=== PATIENT | female | born 1965 | race Caucasian/White ===

== ENCOUNTER 2016-10-08 08:38 | Inpatient (IN) | payer OTHER ==
[~2016-10-08] VITALS: Ht 170.2 cm; Wt 85.7 kg
[~2016-10-08 08:38] MED LIST: AMLODIPINE BESYL5 MG PO; AZATHIOPRINE50 MG PO; CIPRO500 MG PO; CLEOCIN300 MG PO; CLONAZEPAM0.5 MG PO; ENDOCET 10-3251 EACH PO; FLAGYL500 MG PO; GAMMAGARD LIQUI25 ML IV; HYDROCODON-ACE1 EAC7 PO; HYDROXYCHLOROQ200 MG PO; KLONOPIN0.5 M1 PO; LAMICTAL100 MG PO; LAMICTAL200 MG PO; LAMOTRIGINE200 MG; LAMOTRIGINE200 MG PO; LEVAQUIN500 MG PO; MEDROL DOSEPAK4 MG PO; MELATONIN5 M1 PO; METRONIDAZOLE500 MG PO; MOTRIN IB200 MG PO; MOTRIN400 MG PO; NORCO 5/3251 TABLET PO; OMEPRAZOLE40 M1 PO; PERCOCET 5/31 TABLET PO; PERCOCET 7.51 TABLET PO; PREDNISONE10 MG PO; PROTONIX40 MG PO; PROZAC20 MG PO; PROZAC40 MG PO; RISPERIDONE1 MG
[2016-10-08 08:58] VITALS: BP 122/87
[2016-10-08 09:25] LABS: HEMATOCRIT 40.9 % (36.0-46.0); MCH 32.7 PG (29.0-34.0); MCHC 34.2 G/DL (30.0-36.0); MCV 95.6 FL (83-99); MEAN PLAT.VOLUME 10.6 uM^3 (9.5-12.4); PLATELET COUNT 331 K/uL (156-360); RBC DIS.WIDTH-CV 14.8 % (11.8-14.6); RBC DIS.WIDTH-SD 47.6 % (39-53); RED BLOOD COUNT 4.28 M/uL (3.80-5.20); WHITE BLOOD COUNT 8.5 K/uL (4.1-10.2)
[2016-10-08 10:17] LABS: METH RESISTANT S AUREUS PCR NEGATIVE (NEGATIVE); PROBE CHECK PASS; SPECIMEN PROCESSING CONTROL PASS
[2016-10-08 19:18] VITALS: BP 117/78
[2016-10-08 23:16] VITALS: BP 112/63
[2016-10-09 02:45] VITALS: BP 112/76
[2016-10-09 07:34] LABS: HEMATOCRIT 31.3 % (36.0-46.0); MCHC 33.5 G/DL (30.0-36.0); MCV 98.4 FL (83-99); MEAN PLAT.VOLUME 10.6 uM^3 (9.5-12.4); PLATELET COUNT 246 K/uL (156-360); RBC DIS.WIDTH-CV 14.9 % (11.8-14.6); RED BLOOD COUNT 3.18 M/uL (3.80-5.20); WHITE BLOOD COUNT 9.3 K/uL (4.1-10.2)
[2016-10-09 07:40] LABS: ANION GAP 7 MEQ/L (2-14); CHLORIDE 101 MEQ/L (99-109); GFR ESTIMATE (CALCULATED) > 59 mL/min/; GLUCOSE 107 mg/dL (70-99); MAGNESIUM 1.6 mg/dl (1.3-2.7); POTASSIUM 4.2 MEQ/L (3.7-5.4); SAMPLE HEMOLYSIS CHECK 0; SAMPLE ICTERIC CHECK 0; SAMPLE LIPEMIA CHECK 0; SODIUM 135 MEQ/L (136-147); UREA NITROGEN (BUN) 12 mg/dL (9-23)
[2016-10-09 07:50] VITALS: BP 108/67
[2016-10-09 11:33] VITALS: BP 106/68
[2016-10-09 16:17] VITALS: BP 110/69
[2016-10-09 19:29] VITALS: BP 106/63
[2016-10-09 23:14] VITALS: BP 105/65
[2016-10-10 02:33] VITALS: BP 111/72
[2016-10-10 06:31] LABS: HEMATOCRIT 30.2 % (36.0-46.0); MCH 32.4 PG (29.0-34.0); MCHC 32.8 G/DL (30.0-36.0); MCV 98.7 FL (83-99); MEAN PLAT.VOLUME 10.2 uM^3 (9.5-12.4); PLATELET COUNT 245 K/uL (156-360); RBC DIS.WIDTH-CV 14.8 % (11.8-14.6); RBC DIS.WIDTH-SD 52.8 % (39-53); RED BLOOD COUNT 3.06 M/uL (3.80-5.20)
[2016-10-10 06:57] LABS: ANION GAP 6 MEQ/L (2-14); CHLORIDE 97 MEQ/L (99-109); GFR ESTIMATE (CALCULATED) > 59 mL/min/; GLUCOSE 90 mg/dL (70-99); MAGNESIUM 1.7 mg/dl (1.3-2.7); SAMPLE HEMOLYSIS CHECK 0; SAMPLE ICTERIC CHECK 0; SAMPLE LIPEMIA CHECK 0; SODIUM 135 MEQ/L (136-147); UREA NITROGEN (BUN) 4 mg/dL (9-23)
[2016-10-10 08:18] VITALS: BP 102/62
[2016-10-10 11:31] VITALS: BP 120/67
[2016-10-10 16:36] VITALS: BP 107/73
[2016-10-10 23:04] VITALS: BP 107/70
[2016-10-11 03:10] VITALS: BP 97/59
[2016-10-11 08:15] VITALS: BP 123/74
[2016-10-11 09:42] LABS: HEMATOCRIT 31.9 % (36.0-46.0); MCH 32.9 PG (29.0-34.0); MCHC 33.2 G/DL (30.0-36.0); MCV 99.1 FL (83-99); MEAN PLAT.VOLUME 10.5 uM^3 (9.5-12.4); PLATELET COUNT 282 K/uL (156-360); RBC DIS.WIDTH-CV 14.6 % (11.8-14.6); RBC DIS.WIDTH-SD 53.1 % (39-53); RED BLOOD COUNT 3.22 M/uL (3.80-5.20); WHITE BLOOD COUNT 9.3 K/uL (4.1-10.2)
[2016-10-11 10:05] LABS: ANION GAP 8 MEQ/L (2-14); CHLORIDE 99 MEQ/L (99-109); GFR ESTIMATE (CALCULATED) > 59 mL/min/; GLUCOSE 82 mg/dL (70-99); MAGNESIUM 1.9 mg/dl (1.3-2.7); POTASSIUM 3.9 MEQ/L (3.7-5.4); SAMPLE HEMOLYSIS CHECK 0; SAMPLE ICTERIC CHECK 0; SAMPLE LIPEMIA CHECK 0; SODIUM 136 MEQ/L (136-147); UREA NITROGEN (BUN) 3 mg/dL (9-23)
[2016-10-11 11:20] VITALS: BP 102/65
[2016-10-11 15:56] VITALS: BP 108/65
[2016-10-11 19:44] VITALS: BP 118/64; BP 95/58
[2016-10-11 23:28] VITALS: BP 105/61
[2016-10-12 03:52] VITALS: BP 107/69
[2016-10-12 06:56] LABS: ANION GAP 6 MEQ/L (2-14); CHLORIDE 101 MEQ/L (99-109); GFR ESTIMATE (CALCULATED) > 59 mL/min/; GLUCOSE 86 mg/dL (70-99); SAMPLE HEMOLYSIS CHECK 0; SAMPLE ICTERIC CHECK 0; SAMPLE LIPEMIA CHECK 0; SODIUM 137 MEQ/L (136-147); UREA NITROGEN (BUN) 3 mg/dL (9-23)
[2016-10-12 07:00] LABS: HEMATOCRIT 28.6 % (36.0-46.0); MCH 32.1 PG (29.0-34.0); MCHC 32.5 G/DL (30.0-36.0); MCV 98.6 FL (83-99); MEAN PLAT.VOLUME 10.2 uM^3 (9.5-12.4); PLATELET COUNT 251 K/uL (156-360); RBC DIS.WIDTH-CV 14.4 % (11.8-14.6); RBC DIS.WIDTH-SD 51.8 % (39-53)
[2016-10-12 07:04] LABS: WHITE BLOOD COUNT 5.4 K/uL (4.1-10.2)
[2016-10-12 07:45] VITALS: BP 98/61
[2016-10-12 15:45] VITALS: BP 105/58
[2016-10-12 19:52] VITALS: BP 104/62
[2016-10-12 22:33] VITALS: BP 104/65
[2016-10-13 07:46] LABS: HEMATOCRIT 30.6 % (36.0-46.0); MCH 31.5 PG (29.0-34.0); MCHC 31.7 G/DL (30.0-36.0); MCV 99.4 FL (83-99); MEAN PLAT.VOLUME 9.8 uM^3 (9.5-12.4); PLATELET COUNT 292 K/uL (156-360); RBC DIS.WIDTH-CV 14.4 % (11.8-14.6); RBC DIS.WIDTH-SD 51.4 % (39-53); RED BLOOD COUNT 3.08 M/uL (3.80-5.20)
[2016-10-13 08:13] VITALS: BP 107/69
[2016-10-13 08:16] LABS: ANION GAP 7 MEQ/L (2-14); CHLORIDE 101 MEQ/L (99-109); GFR ESTIMATE (CALCULATED) > 59 mL/min/; GLUCOSE 82 mg/dL (70-99); POTASSIUM 4.2 MEQ/L (3.7-5.4); SAMPLE HEMOLYSIS CHECK 0; SAMPLE ICTERIC CHECK 0; SAMPLE LIPEMIA CHECK 0; SODIUM 139 MEQ/L (136-147); UREA NITROGEN (BUN) 3 mg/dL (9-23)
[2016-10-13 11:07] VITALS: BP 119/87
[2016-10-13 13:58] VITALS: BP 112/72
[2016-10-13 15:09] VITALS: BP 137/70
[2016-10-14 00:39] VITALS: BP 103/62
[2016-10-14 03:35] VITALS: BP 104/74
[2016-10-14 08:42] VITALS: BP 107/80
[2016-10-14 09:18] LABS: HEMATOCRIT 35.2 % (36.0-46.0); PLATELET COUNT 358 K/uL (156-360); RBC DIS.WIDTH-CV 14.6 % (11.8-14.6); RBC DIS.WIDTH-SD 52.2 % (39-53); RED BLOOD COUNT 3.52 M/uL (3.80-5.20)
[2016-10-14 09:19] LABS: WHITE BLOOD COUNT 6.7 K/uL (4.1-10.2)
[2016-10-14 17:33] VITALS: BP 112/68
[2016-10-14 23:09] VITALS: BP 96/69
[2016-10-15 08:55] VITALS: BP 116/80
[2016-10-15 11:25] LABS: HEMATOCRIT 32.5 % (36.0-46.0); MCH 32.3 PG (29.0-34.0); MCHC 32.3 G/DL (30.0-36.0); MEAN PLAT.VOLUME 9.8 uM^3 (9.5-12.4); PLATELET COUNT 321 K/uL (156-360); RBC DIS.WIDTH-CV 14.7 % (11.8-14.6); RBC DIS.WIDTH-SD 52.8 % (39-53); RED BLOOD COUNT 3.25 M/uL (3.80-5.20); WHITE BLOOD COUNT 6.3 K/uL (4.1-10.2)
[2016-10-15 12:02] LABS: ANION GAP 10 MEQ/L (2-14); CHLORIDE 105 MEQ/L (99-109); POTASSIUM 4.4 MEQ/L (3.7-5.4); SAMPLE HEMOLYSIS CHECK 1; SAMPLE ICTERIC CHECK 0; SAMPLE LIPEMIA CHECK 0; SODIUM 137 MEQ/L (136-147)
[2016-10-15 12:08] LABS: GFR ESTIMATE (CALCULATED) > 59 mL/min/; GLUCOSE 93 mg/dL (70-99); UREA NITROGEN (BUN) 6 mg/dL (9-23)
[2016-10-15] MEDS ORDERED: ENDOCET 5-3251 EACH PO (15:31)
[2016-10-15 23:59] VITALS: BP 99/64
[2016-10-16] VITALS: BP 99/64
[2016-10-16 06:42] LABS: HEMATOCRIT 32.5 % (36.0-46.0); MCH 32.3 PG (29.0-34.0); MCHC 32.3 G/DL (30.0-36.0); MEAN PLAT.VOLUME 9.7 uM^3 (9.5-12.4); PLATELET COUNT 321 K/uL (156-360); RBC DIS.WIDTH-CV 14.5 % (11.8-14.6); RBC DIS.WIDTH-SD 52.7 % (39-53); RED BLOOD COUNT 3.25 M/uL (3.80-5.20)
[2016-10-16 06:50] LABS: WHITE BLOOD COUNT 11.3 K/uL (4.1-10.2)
[2016-10-16 07:19] LABS: ANION GAP 10 MEQ/L (2-14); CHLORIDE 106 MEQ/L (99-109); GFR ESTIMATE (CALCULATED) > 59 mL/min/; GLUCOSE 86 mg/dL (70-99); POTASSIUM 4.2 MEQ/L (3.7-5.4); SAMPLE HEMOLYSIS CHECK 0; SAMPLE ICTERIC CHECK 0; SAMPLE LIPEMIA CHECK 0; SODIUM 139 MEQ/L (136-147); UREA NITROGEN (BUN) 7 mg/dL (9-23)
[2016-10-16 07:23] VITALS: BP 120/69
[2016-10-16 11:03] VITALS: BP 104/67
[2016-10-16 16:09] VITALS: BP 117/73
[2016-10-16 22:58] VITALS: BP 105/69
[2016-10-17 08:42] LABS: ANION GAP 9 MEQ/L (2-14); CHLORIDE 106 MEQ/L (99-109); GFR ESTIMATE (CALCULATED) > 59 mL/min/; GLUCOSE 82 mg/dL (70-99); POTASSIUM 4.4 MEQ/L (3.7-5.4); SAMPLE HEMOLYSIS CHECK 0; SAMPLE ICTERIC CHECK 0; SAMPLE LIPEMIA CHECK 0; SODIUM 139 MEQ/L (136-147); UREA NITROGEN (BUN) 8 mg/dL (9-23)
[2016-10-17 08:52] LABS: HEMATOCRIT 34.5 % (36.0-46.0); MCH 32.4 PG (29.0-34.0); MCHC 32.2 G/DL (30.0-36.0); MCV 100.6 FL (83-99); PLATELET COUNT 379 K/uL (156-360); RBC DIS.WIDTH-CV 14.6 % (11.8-14.6); RBC DIS.WIDTH-SD 52.5 % (39-53); RED BLOOD COUNT 3.43 M/uL (3.80-5.20)
[2016-10-17 08:55] LABS: WHITE BLOOD COUNT 7.6 K/uL (4.1-10.2)
[2016-10-17 09:30] VITALS: BP 127/74
[2016-10-17 16:30] VITALS: BP 125/86
[2016-10-17 23:44] VITALS: BP 124/82
[2016-10-18 07:48] VITALS: BP 137/98
[2016-10-18 07:59] LABS: ANION GAP 10 MEQ/L (2-14); CHLORIDE 107 MEQ/L (99-109); GFR ESTIMATE (CALCULATED) > 59 mL/min/; GLUCOSE 84 mg/dL (70-99); MAGNESIUM 2.1 mg/dl (1.3-2.7); POTASSIUM 4.2 MEQ/L (3.7-5.4); SAMPLE HEMOLYSIS CHECK 0; SAMPLE ICTERIC CHECK 0; SAMPLE LIPEMIA CHECK 0; SODIUM 140 MEQ/L (136-147); UREA NITROGEN (BUN) 6 mg/dL (9-23)
[2016-10-18 09:15] LABS: HEMATOCRIT 34.3 % (36.0-46.0); MCH 32.8 PG (29.0-34.0); MCHC 32.9 G/DL (30.0-36.0); MCV 99.7 FL (83-99); MEAN PLAT.VOLUME 9.8 uM^3 (9.5-12.4); PLATELET COUNT 390 K/uL (156-360); RBC DIS.WIDTH-CV 14.7 % (11.8-14.6); RBC DIS.WIDTH-SD 53.1 % (39-53); RED BLOOD COUNT 3.44 M/uL (3.80-5.20); WHITE BLOOD COUNT 7.5 K/uL (4.1-10.2)
[2016-10-18 16:12] VITALS: BP 111/73
[2016-10-18 23:05] VITALS: BP 100/60
[2016-10-19 03:23] VITALS: BP 111/65
[2016-10-19 06:37] LABS: HEMATOCRIT 34.5 % (36.0-46.0); MCH 32.1 PG (29.0-34.0); MCHC 31.9 G/DL (30.0-36.0); MCV 100.6 FL (83-99); MEAN PLAT.VOLUME 10.2 uM^3 (9.5-12.4); PLATELET COUNT 403 K/uL (156-360); RBC DIS.WIDTH-CV 14.6 % (11.8-14.6); RBC DIS.WIDTH-SD 53.3 % (39-53); RED BLOOD COUNT 3.43 M/uL (3.80-5.20); WHITE BLOOD COUNT 6.1 K/uL (4.1-10.2)
[2016-10-19 06:50] LABS: INTER. NORMALIZED RATIO 1.1; PROTHROMBIN TIME 10.8 (9.2-11.2); PTT 26.6 (25-32)
[2016-10-19 06:58] LABS: ANION GAP 9 MEQ/L (2-14); CHLORIDE 106 MEQ/L (99-109); GFR ESTIMATE (CALCULATED) > 59 mL/min/; GLUCOSE 82 mg/dL (70-99); POTASSIUM 4.4 MEQ/L (3.7-5.4); SAMPLE HEMOLYSIS CHECK 0; SAMPLE ICTERIC CHECK 0; SAMPLE LIPEMIA CHECK 0; SODIUM 139 MEQ/L (136-147); UREA NITROGEN (BUN) 8 mg/dL (9-23)
[2016-10-19 08:36] VITALS: BP 137/86
[2016-10-19 14:37] VITALS: BP 124/78
[2016-10-19 16:00] VITALS: BP 124/64
[2016-10-19 20:00] VITALS: BP 115/73
[2016-10-19 23:22] VITALS: BP 119/77
[2016-10-20 03:40] VITALS: BP 132/77
[2016-10-20 07:38] LABS: HEMATOCRIT 33.2 % (36.0-46.0); MCH 32.2 PG (29.0-34.0); MCHC 32.5 G/DL (30.0-36.0); MCV 99.1 FL (83-99); PLATELET COUNT 401 K/uL (156-360); RBC DIS.WIDTH-CV 14.3 % (11.8-14.6); RBC DIS.WIDTH-SD 51.9 % (39-53); RED BLOOD COUNT 3.35 M/uL (3.80-5.20); WHITE BLOOD COUNT 5.8 K/uL (4.1-10.2)
[2016-10-20 07:40] LABS: ANION GAP 9 MEQ/L (2-14); CHLORIDE 106 MEQ/L (99-109); GFR ESTIMATE (CALCULATED) > 59 mL/min/; GLUCOSE 82 mg/dL (70-99); POTASSIUM 4.5 MEQ/L (3.7-5.4); SAMPLE HEMOLYSIS CHECK 0; SAMPLE ICTERIC CHECK 0; SAMPLE LIPEMIA CHECK 0; SODIUM 140 MEQ/L (136-147); UREA NITROGEN (BUN) 11 mg/dL (9-23)
[2016-10-20 08:42] VITALS: BP 109/76
== END 2016-10-20 11:42 | disposition home or self-care (01) | DRG 330 ==
LOC: 5EAST 08:38 → 2SOUTH 08:38 → 5EAST 16:11
PROVIDERS: Physician Assistant; Radiology Diagnostic Radiology; Surgery
DX: K57.32 Diverticulitis of large intestine without perforation or abscess without bleeding (principal); M33.20 Polymyositis, organ involvement unspecified; G70.00 Myasthenia gravis without (acute) exacerbation; M32.9 Systemic lupus erythematosus, unspecified; R13.10 Dysphagia, unspecified; F41.1 Generalized anxiety disorder; M35.1 Other overlap syndromes; F17.210 Nicotine dependence, cigarettes, uncomplicated; K91.872 Postprocedural seroma of a digestive system organ or structure following a digestive system procedure; Y83.8 Other surgical procedures as the cause of abnormal reaction of the patient, or of later complication, without mention of misadventure at the time of the procedure
CPT/HCPCS: 71010; 74177; 75989; 80048; 83735; 84100; 85027; 85610; 85730; 86850; 86900; 86901; 86920; 87070; 87075; 87205; 87641; 88307; 94799; J0330; J1170; J1335; J1650; J1720; J1940; J2250; J2405; J2543; J2550; J3010; J3480; J7050; J7120; J7500; J7512; S0028

== ENCOUNTER 2017-05-06 11:09 | Emergency (ER) | payer OTHER ==
[~2017-05-06] VITALS: Ht 170.2 cm; Wt 86.7 kg
[~2017-05-06 11:09] MED LIST changes: +ENDOCET 5-3251 EACH PO
[2017-05-06 12:39] LABS: BASOPHIL COUNT 0.1 K/uL (0-0.1); EOSINOPHIL (%) 1.7 % (0-5); EOSINOPHIL COUNT 0.2 K/uL (0-0.3); HEMATOCRIT 42.2 % (36.0-46.0); IMMATURE GRANULOCYTE (%) 0.5 % (0.0-0.7); IMMATURE GRANULOCYTE COUNT 0.1 K/uL; INSTRUMENT ABS NEUTROPHIL CT 8.7 K/uL; LYMPHOCYTE COUNT 1.4 K/uL (1.0-2.8); MCH 32.3 PG (29.0-34.0); MCHC 33.4 G/DL (30.0-36.0); MCV 96.6 FL (83-99); MEAN PLAT.VOLUME 9.9 uM^3 (9.5-12.4); MONOCYTE (%) 9.9 % (3-12); MONOCYTE COUNT 1.1 K/uL (0-0.8); NEUTROPHIL (%) 75.5 % (45-76); NEUTROPHIL COUNT 8.7 K/uL (1.8-6.4); PLATELET COUNT 286 K/uL (156-360); RBC DIS.WIDTH-CV 14.2 % (11.8-14.6); RBC DIS.WIDTH-SD 49.4 % (39-53); RED BLOOD COUNT 4.37 M/uL (3.80-5.20); WHITE BLOOD COUNT 11.5 K/uL (4.1-10.2)
[2017-05-06 12:52] LABS: CHLORIDE 102 mEq/L (99-109); POTASSIUM 4.1 mEq/L (3.7-5.4); SODIUM 135 mEq/L (136-147)
[2017-05-06 12:54] LABS: GLUCOSE 80 mg/dL (70-99)
[2017-05-06 12:55] LABS: ANION GAP 10 MEQ/L (2-14)
[2017-05-06 12:57] LABS: GFR ESTIMATE (CALCULATED) > 59 mL/min/
[2017-05-06 12:58] LABS: UREA NITROGEN (BUN) 12 mg/dL (9-23)
[2017-05-06] MEDS ORDERED: PREDNISONE50 MG PO (13:01)
[2017-05-06] MEDS ORDERED: VALIUM5 MG PO (13:01)
[2017-05-06 14:26] VITALS: BP 139/74
== END 2017-05-06 14:29 | disposition home or self-care (01) ==
LOC: EME 11:09
PROVIDERS: Emergency Medicine
DX: M54.2 Cervicalgia (principal); M54.6 Pain in thoracic spine; T50.995A Adverse effect of other drugs, medicaments and biological substances, initial encounter; M32.9 Systemic lupus erythematosus, unspecified; G70.00 Myasthenia gravis without (acute) exacerbation; F17.200 Nicotine dependence, unspecified, uncomplicated
CPT/HCPCS: 70360; 80048; 85025; 99281; 99284